=== PATIENT | male | born 1970 | race Two or more races ===

== ENCOUNTER 2022-12-14 14:48 | Emergency (ER) | payer MEDICAID ==
[~2022-12-14] VITALS: Ht 160 cm; Wt 83.1 kg
[2022-12-14 15:24] LABS: Basophils # (auto) 0.1 10 ^3/uL (0-0.2); Basophils % (auto) 0.8 % (0.0-2.0); Eosinophils # (auto) 0 10 ^3/uL (0-0.8); Eosinophils % (auto) 0.3 % (0.0-7.0); Hematocrit 40.8 % (41.0-53.0); Hemoglobin 14.1 g/dL (13.5-17.5); Lymphocytes # (auto) 1.3 10 ^3/uL (0.4-5.4); Lymphocytes % (auto) 15.3 % (10.0-50.0); Mean Corpuscular Hemoglobin 28.9 pg (28.0-32.0); Mean Corpuscular Hgb Conc. 34.6 g/dL (32.0-36.0); Mean Corpuscular Volume 83.6 fL (80.0-100.0); Monocytes # (auto) 0.3 10 ^3/uL (0-1.3); Monocytes % (auto) 3.6 % (0.0-12.0); Nucleated Red Blood Cells % 0.4 %; Red Blood Cells 4.88 10^6/uL (4.5-5.90); Red Cell Distribution Width 12.8 % (11.8-14.3); White Blood Cell 8.8 10^3/uL (4.4-10.8)
[2022-12-14 15:52] LABS: Albumin 4.1 g/dL (3.4-5.0); BUN/Creatinine Ratio 12.7; Bilirubin, Total 0.4 mg/dL (0.2-1.0); Calcium 8.9 mg/dL (8.5-10.1); Potassium 4.3 mmol/L (3.5-5.1)
[2022-12-14] MEDS: MORPHINE SULFATE 4 MG/ML SYR/VIAL IM ONE ×2 (16:04→16:08)
[2022-12-14 16:20] LABS: Urine Bacteria NONE SEEN /hpf (None Seen); Urine Blood Negative /uL (Negative); Urine Mucus FEW (None Seen); Urine Specific Gravity 1.017 (1.001-1.035); Urine WBC <1 /hpf (0 - 3)
[2022-12-14] MEDS ORDERED: DICY10CA PO (17:09)
[2022-12-14] MEDS ORDERED: ONDA-144 PO (17:09)
[2022-12-14] MEDS ORDERED: PANT40TA2 PO (17:09)
[2022-12-14 17:37] VITALS: BP 130/80
== END 2022-12-14 17:44 | disposition home or self-care (01) ==
LOC: ER 14:48
DX: R10.13 Epigastric pain (principal)
CPT/HCPCS: 36415; 74176; 80053; 81001; 83690; 84484; 85025; 93005